=== PATIENT | male | born 2000 | race Caucasian/White ===

== ENCOUNTER 2020-09-25 23:02 | Emergency (ER) | payer OTHER ==
[2020-11-18] MEDS ORDERED: VOLTAREN **OUT50 MG PO (17:01)
[2020-11-25] MEDS ORDERED: PERCOCET 5-3251 EACH PO (12:42)
== END 2020-09-26 02:45 | disposition home or self-care (01) ==
LOC: FER 23:02
DX: S43.401A Unspecified sprain of right shoulder joint, initial encounter (principal); F17.290 Nicotine dependence, other tobacco product, uncomplicated; Y04.2XXA Assault by strike against or bumped into by another person, initial encounter
CPT/HCPCS: 73030

== ENCOUNTER → 2020-11-25 | Day surgery (SDC) | payer OTHER ==
[~2020-11-25] VITALS: Ht 182.9 cm; Wt 77.1 kg
[~2020-11-25] MED LIST: PERCOCET 5-3251 EACH PO; VOLTAREN **OUT50 MG PO
== END | disposition home or self-care (01) ==
LOC: FAS 11:39 → EDBD 13:15 → FAS 13:15
DX: S43.431A Superior glenoid labrum lesion of right shoulder, initial encounter (principal); M25.311 Other instability, right shoulder; X58.XXXA Exposure to other specified factors, initial encounter; Z20.822 Contact with and (suspected) exposure to COVID-19
CPT/HCPCS: C1713; J0171; J0690; J2250; J2704; J2795; J3010; J7120

== ENCOUNTER 2021-06-12 14:00 | Emergency (ER) | payer OTHER | END 2021-06-12 15:20 | disposition home or self-care (01) | LOC: FER 14:00 | DX: S09.90XA Unspecified injury of head, initial encounter (principal); F17.290 Nicotine dependence, other tobacco product, uncomplicated; V49.40XA Driver injured in collision with unspecified motor vehicles in traffic accident, initial encounter; Y92.410 Unspecified street and highway as the place of occurrence of the external cause | CPT/HCPCS: 99283 ==

== ENCOUNTER 2021-08-31 11:48 | Emergency (ER) | payer OTHER ==
[2021-08-31 14:34] LABS: INFLUENZA A NAA NEGATIVE (NEGATIVE)
[2021-08-31 14:36] LABS: CORONAVIRUS 2019 SARS-COV-2 POSITIVE (NEGATIVE)
[2021-08-31] MEDS ORDERED: VENTOLIN HFA18 GM INH (16:33)
[2021-08-31] MEDS ORDERED: ZOFRAN4 M1 PO (16:33)
== END 2021-08-31 17:17 | disposition home or self-care (01) ==
LOC: FER 11:48
PROVIDERS: Emergency Medicine
DX: U07.1 COVID-19 (principal); F17.290 Nicotine dependence, other tobacco product, uncomplicated
CPT/HCPCS: J1885; U0002

== ENCOUNTER 2022-04-28 13:56 | Emergency (ER) | payer OTHER ==
[~2022-04-28 13:56] MED LIST changes: +VENTOLIN HFA18 GM INH; +ZOFRAN4 M1 PO
== END 2022-04-28 15:25 | disposition home or self-care (01) ==
LOC: FER 13:56
DX: S90.122A Contusion of left lesser toe(s) without damage to nail, initial encounter (principal); W22.8XXA Striking against or struck by other objects, initial encounter; Y92.009 Unspecified place in unspecified non-institutional (private) residence as the place of occurrence of the external cause; Z28.310 Unvaccinated for COVID-19
CPT/HCPCS: 73630